=== PATIENT | female | born 2000 | race Caucasian/White ===

== ENCOUNTER 2022-05-07 10:14 | Day surgery (SDC) | payer OTHER ==
[~2022-05-07] VITALS: Ht 175.3 cm; Wt 77.0 kg
[~2022-05-07 10:14] MED LIST: CIPRODEX OTIC SUSP 7.5ML As Ordered ONE
[2022-05-07] MEDS ORDERED: BUPIVACAINE/EPIN 0.5% 30ML VIAL As Ordered ONE (10:45)
[2022-05-07] MEDS ORDERED: propofoL 200 MG/20 ML VIAL As Ordered ONE (11:21)
[2022-05-07] MEDS ORDERED: ROCURONIUM BROMIDE 50MG/5ML VIAL As Ordered ONE (11:21)
[2022-05-07] MEDS ORDERED: LIDOCAINE 2% 100MG/5ML SDV (FOR ANES.) As Ordered ONE (11:21)
[2022-05-07] MEDS ORDERED: ONDANSETRON 4MG 2ML VIAL As Ordered ONE (11:22)
[2022-05-07] MEDS ORDERED: fentaNYL 100 MCG/2 ML INJECTION As Ordered ONE (11:22)
[2022-05-07] MEDS ORDERED: MIDAZOLAM INJ 2MG/2ML VIAL As Ordered ONE (11:22)
[2022-05-07] MEDS ORDERED: oxyCODONE 5MG TAB PO PRN (13:00)
[2022-05-07] MEDS ORDERED: ONDANSETRON 4MG 2ML VIAL IV PRN ×2 (13:00→13:20)
[2022-05-07] MEDS ORDERED: LR 1,000 ML IV SCH ×2 (13:00→13:15)
[2022-05-07] MEDS ORDERED: fentaNYL 100 MCG/2 ML INJECTION IV PRN (13:00)
[2022-05-07] MEDS ORDERED: HYDROcodone/APAP LIQUID 7.5-325MG 15ML UDC (LORTAB ELIXIR) PO PRN (13:15)
[2022-05-07 14:24] VITALS: BP 130/78
== END 2022-05-07 14:35 | disposition home or self-care (01) ==
LOC: M SDC 10:14
PROVIDERS: ATTEND Otolaryngology
DX: J35.03 Chronic tonsillitis and adenoiditis (principal)
CPT/HCPCS: 42821; 81025; 88302; J1100; J2250; J2405; J3010; S0020

== ENCOUNTER 2022-09-25 14:31 | Inpatient (IN) | payer OTHER ==
[~2022-09-25] VITALS: Ht 175.3 cm; Wt 75.0 kg
[2022-09-25 15:24] LABS: HEMATOCRIT 38.2 % (36.0-47.0); HEMOGLOBIN 12.6 g/dl (12.0-15.5); MEAN CORPUSCULAR HEMOGLOBIN 29.7 pg (27.0-33.0); MEAN CORPUSCULAR VOLUME 90.1 fl (80.0-96.0); PLATELET COUNT, AUTOMATED 319 10^3/uL (150-450); RED BLOOD COUNT 4.24 10^6/uL (4.00-5.40); WHITE BLOOD COUNT 4.8 10^3/uL (4.0-10.0)
[2022-09-25] MEDS ORDERED: MED REC IN PROGRESS XX SCH (15:35)
[2022-09-25 15:49] LABS: AMPHETAMINES LEVEL URINE NEGATIVE (NEGATIVE); BARBITURATES URINE NEGATIVE (NEGATIVE); BENZODIAZEPINES URINE NEGATIVE (NEGATIVE); CANNABINOIDS URINE NEGATIVE (NEGATIVE); COCAINE METABOLITE URINE NEGATIVE (NEGATIVE); METHADONE URINE NEGATIVE (NEGATIVE); OPIATES URINE NEGATIVE (NEGATIVE); PHENCYCLIDINE URINE NEGATIVE (NEGATIVE)
[2022-09-25] MEDS ORDERED: SERT25TA21 PO (16:03)
[2022-09-25 16:04] LABS: ETHYL ALCOHOL (ETHANOL) < 0.003 % (0.000-0.010)
[2022-09-25 16:05] LABS: ACETAMINOPHEN LEVEL < 2.0 UG/ML (10.0-20.0); ALBUMIN 4.1 G/DL (3.2-5.2); ALKALINE PHOSPHATASE 50 U/L (46-116); ALT/SGPT 16 U/L (7.0-40); AST/SGOT 10 U/L (<34); BILIRUBIN,DIRECT 0.3 MG/DL (<0.4); BLOOD UREA NITROGEN 10 MG/DL (9-23); CALCIUM LEVEL 9.5 MG/DL (8.5-10.1); CARBON DIOXIDE LEVEL 27 MMOL/L (20-31); CHLORIDE LEVEL 105 MMOL/L (98-107); CREATININE FOR GFR 0.63 MG/DL (0.55-1.30); GLOMERULAR FILTRATION RATE > 60.0 (>60); GLUCOSE, FASTING 76 MG/DL (60-100); POTASSIUM SERUM 4.1 MMOL/L (3.5-5.1); SALICYLATE LEVEL < 3.0 MG/DL (<30); SODIUM LEVEL 141 MMOL/L (136-145); TOTAL PROTEIN 7.9 G/DL (5.7-8.2)
[2022-09-25] MEDS ORDERED: IBUP200C25 PO (16:05)
[2022-09-25 16:08] LABS: THYROID STIMULATING HORMONE 1.296 uIU/ML (0.55-4.78)
[2022-09-25 16:09] LABS: HCG, SERUM QUALITATIVE NEGATIVE (NEGATIVE)
[2022-09-25] MEDS ORDERED: HOME MED LIST COMPLETE! XX SCH (16:10)
[2022-09-25] MEDS ORDERED: MOM 30ML SUSPENSION UDC PO PRN (19:10)
[2022-09-25] MEDS ORDERED: ACETAMINOPHEN TAB 650MG DOSE (2X325MG) PO PRN (19:10)
[2022-09-25] MEDS ORDERED: MAALOX 30 ML SUSP *UDC PO PRN (19:10)
[2022-09-25] MEDS ORDERED: diphenhydrAMINE 25MG CAP PO PRN (19:10)
[2022-09-25] MEDS ORDERED: traZODone 50 MG TAB PO PRN (19:10)
[2022-09-25] MEDS ORDERED: IBUPROFEN 400MG TAB PO PRN (19:10)
[2022-09-25] MEDS ORDERED: SERTRALINE HCL 25 MG TABLET PO SCH ×2 (21:00)
[2022-09-25 22:24] VITALS: BP 115/59; TEMP 97.1; O2SAT 96
[2022-09-26 06:58] VITALS: BP 119/69; TEMP 97.3; O2SAT 100
[2022-09-26] MEDS: SERTRALINE HCL 50 MG TAB PO SCH (09:57)
[2022-09-26 18:45] VITALS: BP 132/77; TEMP 97
[2022-09-27 06:06] VITALS: BP 115/57; TEMP 97.6; O2SAT 98
[2022-09-27] MEDS: SERTRALINE HCL 50 MG TAB PO SCH (09:49)
[2022-09-27] MEDS ORDERED: ONDANSETRON 4MG TAB PO PRN (17:55)
[2022-09-27] MEDS ORDERED: guaiFENesin 200 MG TAB PO PRN (17:55)
[2022-09-27] MEDS ORDERED: SODIUM CHLORIDE NASAL 0.65% SPRAY BTL (OCEAN) PRN (17:55)
[2022-09-27 18:00] VITALS: BP 121/61; TEMP 96.5
[2022-09-27] MEDS: AUGMENTIN 875 MG TAB PO SCH (21:22)
[2022-09-27] MEDS: CIPRODEX OTIC SUSP 7.5ML AD SCH (21:23)
[2022-09-28 06:46] VITALS: BP 113/54; TEMP 97.5; O2SAT 98
[2022-09-28] MEDS: AUGMENTIN 875 MG TAB PO SCH (09:20)
[2022-09-28] MEDS: CIPRODEX OTIC SUSP 7.5ML AD SCH (09:20)
[2022-09-28] MEDS: SERTRALINE HCL 50 MG TAB PO SCH (09:20)
[2022-09-28] MEDS ORDERED: SERT50TA29 PO (10:36)
[2022-09-28] MEDS ORDERED: AMOX875T2 PO (10:36)
[2022-09-28] MEDS ORDERED: CIPR7.5D2 AD (10:36)
== END 2022-09-28 13:24 | disposition home or self-care (01) | DRG 885 ==
LOC: M ED 14:31 → M ED INP 19:13 → M PSY 22:09
PROVIDERS: ADMIT Psychiatry & Neurology Psychiatry; ATTEND Student in an Organized Health Care Education/Training Program
DX: F32.89 Other specified depressive episodes (principal); Z79.899 Other long term (current) drug therapy; Z91.51 Personal history of suicidal behavior; F43.21 Adjustment disorder with depressed mood; H66.91 Otitis media, unspecified, right ear; Z62.810 Personal history of physical and sexual abuse in childhood; Z62.811 Personal history of psychological abuse in childhood